=== PATIENT | female | born 1945 | race Caucasian/White ===

== ENCOUNTER → 2017-10-12 | Outpatient (CLI) | payer MEDICARE, OTHER ==
[~2017-10-12] MED LIST: ALB18R IH; ALBU8.5H IH; AMLO-96 PO; AMOX-559 PO; CULTURELLE CAP1 EACH PO; DIPH0.5D12 IM; FLUT16SP20 NS; FLUT9.9S; FLUTR INH; FOLI0.4T56 PO; HEPA20VI IM; HYDR12.561 PO; LISI-374 PO; LISINOPRIL; LUTE10TA3 PO; LUTE1CAP4 PO; LUTE20CA11 PO; METF-420 PO; METF-421 PO; METH4TAB66 PO; MULT-1335 PO; MULT-892 PO; NEBI10TA4 PO; NEBI5TAB PO; OMEG500C7 PO; OMEP-137 PO; OXYGENHOME INH; PER PO; PNEU0.5D3 IM; PREMARIN; RANI75TA5 PO; RIVA20TA PO; TRIA10.8; VITA-175 PO; WAR5 PO; ZOLP-350 PO; ZOLP12.548 PO
[2017-10-12 08:43] LABS: PLATELET COUNT, AUTOMATED 239 K/uL (150-450)
[2017-10-12 09:04] LABS: LDL CHOLESTEROL 15 mg/dl
== END ==
LOC: LAB 08:11
PROVIDERS: ATTEND Nurse Practitioner Family
DX: I10 Essential (primary) hypertension (principal); E11.9 Type 2 diabetes mellitus without complications
CPT/HCPCS: 36415; 82040; 82247; 82310; 82374; 82435; 82465; 82565; 82947; 83036; 83718; 84075; 84132; 84155; 84295; 84443; 84450; 84460; 84478; 84520; 85025

== ENCOUNTER → 2017-11-24 | Outpatient (CLI) | payer MEDICARE, OTHER ==
[~2017-11-24] MED LIST changes: +CALC1TAB32 PO; +HEPA40VI2 IM; +HEPA50VI4 IM; +VARI50KI IM
--- NOTE | 2017-11-26 15:43 | RADIOLOGY IMAGING REPORT ---
FACILITY: [facility] PATIENT NAME: REBECCA DAVILA : [id number] MR: [id number] V: [id number] EXAM DATE: [id number] ORDERING PHYSICIAN: SHARLA BREWER TECHNOLOGIST: Adelaide Valenzuela PROCEDURE:BILATERAL DIGITAL SCREENING MAMMOGRAM WITH CAD ASSISTED INTERPRETATION & 3D TOMOSYNTHESIS COMPARISON:Prior mammograms 08/20/16, 07/10/15, 03/22/14, 09/21/12. INDICATIONS:SCREENING FINDINGS: There is predominant fatty replacement throughout the breasts. Only a small amount of fibroglandular tissue is seen. The parenchymal pattern has remained stable allowing for difference in mammographic technique & patient positioning. There is no evidence of malignant appearing mass, malignant appearing calcifications or other secondary sign of malignancy in either breast. DIAGNOSTIC CATEGORY 1--NEGATIVE. RECOMMENDATIONS: ROUTINE MAMMOGRAM AND CLINICAL EVALUATION. IMPRESSION: BIRADS 1: Negative. No significant abnormality is seen. Dictated by: Mackenzie Infante M.D. on 11/26/2017 at 14:58 Transcribed by: MICHELLE on 11/26/2017 at 15:09 Approved by: Mackenzie Infante M.D. on 11/26/2017 at 15:42 [facility]
== END ==
LOC: MAMO 02:04
PROVIDERS: ATTEND Nurse Practitioner Family
DX: Z12.31 Encounter for screening mammogram for malignant neoplasm of breast (principal)
CPT/HCPCS: 77063; 77067

== ENCOUNTER → 2017-12-02 | Outpatient (CLI) | payer MEDICARE, OTHER ==
--- NOTE | 2017-12-02 11:33 | RADIOLOGY IMAGING REPORT ---
FACILITY: [facility] - [place] PATIENT NAME: Michelle Arteaga : 1945 MR: [id number] V: [id number] EXAM DATE: ORDERING PHYSICIAN: APRIL KAUFMAN TECHNOLOGIST: Location: [facility] [place] Patient: Michelle Arteaga : 1945 Visit/Account:[id number] Date of Sevice: 12/02/2017 EXAMINATION: Abdominal ultrasound complete HISTORY: Cirrhosis COMPARISON: Abdomen ultrasound February 18, 2017 FINDINGS: Gallbladder: Intense acoustic shadowing is identified in the gallbladder fossa. This is likely relat ed to contracted gallbladder full of stones. There is a negative Stovall sign by technologist bell chen Liver: There is increased echogenicity seen throughout liver which can be seen with fatty infiltratio n other infiltrative process. Discrete mass is not demonstrated. Common duct: Normal measuring 3.2 mm. Pancreas: Unremarkable as imaged. Tail is partially obscured by bowel gas Spleen: Normal in size and echogenicity measuring 8.1 cm in length. Kidneys: Normal in size and echogenicity, the right measures 9.9 cm in length, and the left 10.4 cm. No hydronephrosis. Resistive index on the right 0.59 on the left 0.59 Upper abdominal aorta and IVC: Negative. Ascites: None. IMPRESSION: Intense acoustic shadowing in the gallbladder fossa likely related to contracted gallbladder full of stones. Cholelithiasis has previously been documented. There is no evidence of a positive Stovall si gn or biliary ductal dilatation Increased echogenicity throughout liver which can be seen with fatty infiltration other infiltrative process Report Dictated By: Mackenzie Infante MD at 12/02/2017 11:07 AM Report E-Signed By: Mackenzie Infante MD at 12/02/2017 11:29 AM WSN:[email or web address]
== END ==
LOC: US 02:24
PROVIDERS: ATTEND Internal Medicine Gastroenterology
DX: K74.60 Unspecified cirrhosis of liver (principal); Z87.442 Personal history of urinary calculi
CPT/HCPCS: 76700

== ENCOUNTER → 2018-02-22 | Outpatient (CLI) | payer MEDICARE, OTHER ==
[~2018-02-22] MED LIST changes: +AMLO-111 PO; -AMLO-96 PO; -METF-421 PO; +METF-452 PO
== END ==
LOC: LAB 10:37
PROVIDERS: ATTEND Internal Medicine Gastroenterology
DX: K74.60 Unspecified cirrhosis of liver (principal)
CPT/HCPCS: 36415; 82105

== ENCOUNTER 2018-03-10 14:25 | Outpatient (RCR) | payer MEDICARE, OTHER ==
[~2018-03-10 14:25] MED LIST changes: -RANI75TA5 PO; +RANI75TA51 PO
[2018-03-10 14:30] VITALS: BP 146/83
--- NOTE | 2018-03-10 18:27 | ONCOLOGY FOLLOW UP NOTE ---
EVENT DATE: March 10, 2018 REASON FOR FOLLOWUP 1. History of pulmonary embolus and bilateral DVT. 2. Ongoing anticoagulation with Xarelto. 3. Concern for liver dysfunction due to VILLAFANA. 4. Compound heterozygosity for MTHFR mutation. 5. 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 INTERIM HISTORY Ms. Arteaga returns to clinic for a followup visit today. She reports that she has been doing well in general, but she has been medically busy over the past few months. She has undergone cataract surgery as well as colonoscopy and EGD, amongst other things. Her EGD did not show any evidence of varices, and she was happy about this. Her colonoscopy revealed two polyps which were snared, but no evidence of malignancy. She had held her Xarelto for her endoscopic evaluations as well as her cataract surgery. She is back on the Xarelto now. She reports no severe epistaxis. She has had no melena or hematochezia. She denies further issues with hematuria. REVIEW OF SYSTEMS Otherwise negative, and all systems were reviewed. PAST MEDICAL HISTORY 1. Bilateral DVT and pulmonary embolism, as above. 2. Reported cirrhosis, possibly due to fatty liver. 3. History of osteomyelitis. 4. History of hematuria, no known source per patient. 5. MTHFR mutation. 6. History of subcapsular hepatic hematoma. 7. Elevated factor VIII level. 8. Hypertension. 9. Type 2 diabetes mellitus. 10. History of inferior vena cava filter placement. PAST SURGICAL HISTORY 1. Status post tonsillectomy. 2. History of bladder repair surgery. 3. History of ACL surgery (left knee). CURRENT MEDICATIONS 1. Zolpidem. 2. Ranitidine. 3. Rivaroxaban. 4. Metformin. 5. Lisinopril. 6. Amlodipine. 7. Lutein. 8. Nebivolol. 9. Vitamin B complex. 10. Folic acid. 11. Omeprazole. ALLERGIES 1. MIRTAZAPINE. 2. MEDICAL TAPE. 3. DEMEROL. 4. DILAUDID. SOCIAL HISTORY Patient is , and she has two children. She rarely drinks alcohol. she is a former smoker, having quit in 1965, and she only smoked for about one and a half years. There is no history of illicit drug use. FAMILY HISTORY There is a reported history of lung cancer, as well as COPD, diabetes mellitus, and hypertension. VITAL SIGNS Temperature 98.4, blood pressure 146/83, heart rate is 64, respirations 16, oxygen saturation is 90% on room air. Weight is 76.6 kg. PHYSICAL EXAMINATION GENERAL: Patient is alert and oriented times three, in no apparent distress, sitting in the exam room chair. She is interactive and quite pleasant. HEENT: Anicteric sclerae. NEUROLOGIC: Grossly nonfocal, and her gait is normal. SKIN: No concerning rash or lesion. EXTREMITIES: No edema, clubbing, or cyanosis. There is no erythema or tenderness to palpation. LABORATORY STUDIES [facility]. ASSESSMENT AND PLAN History of bilateral deep venous thrombosis, pulmonary embolism. Ms. Arteaga continues to do well with rivaroxaban anticoagulation. She has no signs or symptoms today to suggest recurrent venous thromboembolism. She has had no problems with bleeding. She is able to afford the rivaroxaban without difficulty. We spent time today reviewing her medical interventions over the past few months. I am happy to hear that there is no evidence of esophageal varices. She does have ongoing gastrointestinal followup. Given her excellent tolerance for ongoing anticoagulation and her fear for recurrent thrombosis, she feels very strongly that she would like to continue with full-dose anticoagulation indefinitely. She understands the risk of bleeding that comes inherently with this. As discussed, I would be more than happy to see her again if there are questions or concerns in the future. JALYN
[2018-04-02] MEDS ORDERED: GUAI120L3 PO (10:58)
[2018-04-02] MEDS ORDERED: AMOX-559 PO (10:58)
== END 2018-03-29 09:30 | disposition home or self-care (01) ==
LOC: ONC 14:25
PROVIDERS: ATTEND Internal Medicine Medical Oncology
DX: I74.9 Embolism and thrombosis of unspecified artery (principal); Z79.01 Long term (current) use of anticoagulants; E72.12 Methylenetetrahydrofolate reductase deficiency; I10 Essential (primary) hypertension; E11.9 Type 2 diabetes mellitus without complications; Z87.891 Personal history of nicotine dependence; Z95.828 Presence of other vascular implants and grafts
CPT/HCPCS: 99212

== ENCOUNTER → 2018-03-16 | Outpatient (CLI) | payer MEDICARE, OTHER ==
[2018-03-16 09:03] VITALS: BP 128/76
[2018-03-16 09:23] LABS: PLATELET COUNT, AUTOMATED 282 K/uL (150-450)
== END ==
LOC: SPU 08:33
PROVIDERS: ATTEND Nurse Practitioner Family
DX: E11.9 Type 2 diabetes mellitus without complications (principal); Z79.899 Other long term (current) drug therapy
CPT/HCPCS: 36415; 82040; 82247; 82310; 82374; 82435; 82565; 82947; 83036; 84075; 84132; 84155; 84295; 84443; 84450; 84460; 84520; 85025

== ENCOUNTER → 2018-03-31 | Outpatient (CLI) | payer MEDICARE, OTHER ==
[~2018-03-31] MED LIST changes: +GUAI120L3 PO
== END ==
LOC: LAB 10:56
PROVIDERS: ATTEND Nurse Practitioner Family
DX: Z02.9 Encounter for administrative examinations, unspecified (principal)

== ENCOUNTER → 2018-04-15 | Outpatient (CLI) | payer MEDICARE, OTHER ==
[~2018-04-15] MED LIST changes: +LEVO-85 PO
--- NOTE | 2018-04-15 15:56 | RADIOLOGY IMAGING REPORT ---
FACILITY: [facility] - [place] PATIENT NAME: Michelle Arteaga : 1945 MR: [id number] V: [id number] EXAM DATE: ORDERING PHYSICIAN: SHARLA BREWER TECHNOLOGIST: [place] [facility] [place]: Michelle Arteaga : 1945 Visit/Account:[id number] Date of Sevice: 04/15/2018 Exam type: CHEST PA AND LAT History: cough, hypoxia Comparison: May 19, 2016. Findings: The lungs are free of acute effusions, infiltrates or edema. The cardiac silhouette is normal in siz e. The trachea is in midline. IMPRESSION: 1. No acute cardiac pulmonary process is seen Report Dictated By: Mackenzie Infante MD at 04/15/2018 3:51 PM Report E-Signed By: Mackenzie Infante MD at 04/15/2018 3:52 PM WSN:[email or web address]
== END ==
LOC: RAD 13:22
PROVIDERS: ATTEND Nurse Practitioner Family
DX: R09.02 Hypoxemia (principal); R05 Cough
CPT/HCPCS: 71046

== ENCOUNTER → 2018-04-28 | Outpatient (CLI) | payer MEDICARE, OTHER ==
[~2018-04-28] MED LIST changes: +MONT10TA PO
[2018-04-28 12:12] LABS: INR 0.96
== END ==
LOC: LAB 11:38
PROVIDERS: ATTEND Internal Medicine Gastroenterology
DX: K74.60 Unspecified cirrhosis of liver (principal)
CPT/HCPCS: 85610; 85730

== ENCOUNTER → 2018-04-28 | Outpatient (CLI) | payer MEDICARE, OTHER ==
[2018-04-28 12:05] LABS: PLATELET COUNT, AUTOMATED 274 K/uL (150-450)
== END ==
LOC: LAB 11:38
PROVIDERS: ATTEND Nurse Practitioner Family
DX: D72.9 Disorder of white blood cells, unspecified (principal)
CPT/HCPCS: 36415; 85025

== ENCOUNTER → 2018-05-28 | Outpatient (CLI) | payer MEDICARE, OTHER ==
[~2018-05-28] MED LIST changes: -AMLO-111 PO; +AMLO-125 PO
[2018-05-28 12:18] LABS: INR 1.02
== END ==
LOC: LAB 11:07
PROVIDERS: ATTEND Internal Medicine Gastroenterology
DX: K76.0 Fatty (change of) liver, not elsewhere classified (principal); K74.69 Other cirrhosis of liver
CPT/HCPCS: 36415; 82103; 82728; 83516; 83540; 83550; 85610; 86038

== ENCOUNTER → 2018-05-28 | Outpatient (CLI) | payer MEDICARE, OTHER ==
[2018-05-28 12:13] LABS: PLATELET COUNT, AUTOMATED 294 K/uL (150-450)
== END ==
LOC: LAB 11:14
PROVIDERS: ATTEND Nurse Practitioner Family
DX: D72.9 Disorder of white blood cells, unspecified (principal)
CPT/HCPCS: 85007; 85027

== ENCOUNTER → 2018-06-17 | Outpatient (CLI) | payer MEDICARE, OTHER | LOC: LAB 09:44 | PROVIDERS: ATTEND Internal Medicine Gastroenterology | DX: K76.0 Fatty (change of) liver, not elsewhere classified (principal); K74.69 Other cirrhosis of liver | CPT/HCPCS: 36415; 82728; 82947; 84450; 84460 ==

== ENCOUNTER → 2018-07-29 | Outpatient (CLI) | payer MEDICARE, OTHER ==
[2018-07-29 14:36] LABS: PLATELET COUNT, AUTOMATED 263 K/uL (150-450)
== END ==
LOC: LAB 14:02
PROVIDERS: ATTEND Internal Medicine Gastroenterology
DX: K76.0 Fatty (change of) liver, not elsewhere classified (principal); R76.8 Other specified abnormal immunological findings in serum; R94.5 Abnormal results of liver function studies
CPT/HCPCS: 36415; 82040; 82247; 82248; 84075; 84155; 84450; 84460; 85025

== ENCOUNTER → 2018-08-26 | Outpatient (CLI) | payer MEDICARE, OTHER ==
[~2018-08-26] MED LIST changes: -DIPH0.5D12 IM; +DIPH0.5S2 IM
== END ==
LOC: LAB 11:42
PROVIDERS: ATTEND Internal Medicine Gastroenterology
DX: R11.0 Nausea (principal); R14.0 Abdominal distension (gaseous); R89.9 Unspecified abnormal finding in specimens from other organs, systems and tissues
CPT/HCPCS: 36415; 83516

== ENCOUNTER → 2018-09-24 | Outpatient (CLI) | payer MEDICARE, OTHER ==
--- NOTE | 2018-09-24 12:10 | RADIOLOGY IMAGING REPORT ---
FACILITY: [facility] - [place] PATIENT NAME: Michelle Arteaga : 1945 MR: [id number] V: [id number] EXAM DATE: ORDERING PHYSICIAN: APRIL KAUFMAN TECHNOLOGIST: Location: [facility] Patient: Michelle Arteaga : 1945 Visit/Account:[id number] Date of Sevice: 09/24/2018 ABDOMEN COMPLETE ADDITIONAL HISTORY: Cirrhotic nonalcoholic COMPARISON: 05/13/2018 FINDINGS: Gallbladder: Contracted gallbladder with numerous shadowing stones with LESLY sign.. No obvious wall t hickening.. No pericholecystic c fluid collections. Negative Stovall sign Liver: 13.5 cm. Left lobe appears enlarged. No biliary ductal dilatation. No focal liver masses. Normal hepatopedal flow Common duct: Normal, 1.8 mm diameter. Pancreas: Normal where visualized Spleen: Negative. No focal renal lesions. No hydronephrosis Right kidney: 8.6 x 4.0 x 4.4 cm. Left Kidney: 10.3 x 5.1 x 4.5 cm in size. No focal renal lesion. No hydronephrosis Upper abdominal aorta and IVC: Patent. Ascites: None visualized. IMPRESSION: 1. Contracted gallbladder with numerous shadowing stones. No interval change in appearance the ultr asound when compared to previous study. Report Dictated By: Baldemar Nash MD at 09/24/2018 11:57 AM Report E-Signed By: Baldemar Nash MD at 09/24/2018 12:06 PM WSN:[email or web address]
== END ==
LOC: US 02:15
PROVIDERS: ATTEND Internal Medicine Gastroenterology
DX: R94.5 Abnormal results of liver function studies (principal); K76.0 Fatty (change of) liver, not elsewhere classified; K74.69 Other cirrhosis of liver
CPT/HCPCS: 76700

== ENCOUNTER → 2018-10-21 | Outpatient (CLI) | payer MEDICARE, OTHER ==
[~2018-10-21] MED LIST changes: +FURO-45 PO
== END ==
LOC: LAB 09:42
PROVIDERS: ATTEND Internal Medicine Gastroenterology
DX: K76.0 Fatty (change of) liver, not elsewhere classified (principal)

== ENCOUNTER → 2018-10-21 | Outpatient (CLI) | payer MEDICARE, OTHER ==
[2018-10-21 10:22] LABS: PLATELET COUNT, AUTOMATED 272 K/uL (150-450)
[2018-10-21 10:33] LABS: INR 0.98
[2018-10-21 10:39] LABS: LDL CHOLESTEROL 23 mg/dl
== END ==
LOC: LAB 09:52
PROVIDERS: ATTEND Nurse Practitioner Family
DX: E11.9 Type 2 diabetes mellitus without complications (principal); D72.9 Disorder of white blood cells, unspecified; K74.60 Unspecified cirrhosis of liver; I10 Essential (primary) hypertension; K76.0 Fatty (change of) liver, not elsewhere classified
CPT/HCPCS: 36415; 82040; 82247; 82310; 82374; 82435; 82465; 82565; 82947; 83036; 83718; 84075; 84132; 84155; 84295; 84443; 84450; 84460; 84478; 84520; 85025; 85610; 85730